=== PATIENT | male | born 1970 | race African-American/Black ===

== ENCOUNTER 2020-04-06 18:01 | Emergency (ER) | payer OTHER, SELFPAY ==
[2020-04-06 18:07] VITALS: BP 134/85; PULSE 87; RESP 18; TEMP 36.4; O2SAT 99
--- NOTE | 2020-04-06 18:10 | ECG_ITS ---
Measurements Intervals [place] Rate: 84 P: 53 LA: 137 QRS: 18 QRSD: 93 T: 61 QT: 310 QTc: 367 Interpretive Statements SINUS RHYTHM ST ELEVATION IN DIFFUSE LEADS, PROBABLY EARLY REPOLARIZATION BASELINE ARTIFACT- I, II, III, AVR, AVL, AVF, V1-V3 BORDERLINE ECG Electronically Signed On 04-07-2020 7:01:06 CDT by Enmanuel Jha D.O.
[2020-04-06 18:26] LABS: Basophils Percent Auto 0.6 % (0.2-1.2); Eosinophils Absolute Auto 0.6 K/mm3 (0-0.3); Eosinophils Percent Auto 11.6 % (0-4.4); Hemoglobin 14.8 g/dL (14.0-18.0); Immature Granulocyte Absolute 0.01 K/mm3 (0.00-0.031); Immature Granulocyte Percent A 0.2 % (0-0.5); Lymphocytes Absolute Auto 1.86 K/mm3 (0.9-3.2); Lymphocytes Percent Auto 34.8 % (18.3-44.2); Mean Corpuscular HGB Conc 32.9 g/dl (32-36); Mean Corpuscular Volume 85.2 fl (80-100); Mean Platelet Volume 9.5 fl (7.4-10.4); Monocytes Absolute Auto 0.5 K/mm3 (0.1-0.6); Monocytes Percent Auto 8.6 % (2.6-8.5); Neutrophils Absolute Auto 2.4 K/mm3 (1.3-6.7); Neutrophils Percent Auto 44.2 % (45.5-73.1); Platelet Count Result 379 k/mm3 (150-375); Red Blood Count 5.28 M/mm3 (4.6-6.20); Red Cell Distribution Width 13.2 % (11.5-14.5); White Blood Count 5.4 K/mm3 (4.5-10.0)
--- NOTE | 2020-04-06 18:35 | PC.NURSE ---
Patient refusing MD Tonie TONY informed.
[2020-04-06 18:37] LABS: Anion Gap 7 mmol/L (8-16); Blood Urea Nitrogen 11 mg/dL (9-20); Calcium 9.2 mg/dL (8.4-10.2); Carbon Dioxide 26 mmol/L (22-30); Chloride 105 mmol/L (98-107); Estimated Glomerular Filt Rate > 60; Glucose 80 mg/dL (75-110); Potassium 4.2 mmol/L (3.4-5.0); Sodium 138 mmol/L (137-145)
--- NOTE | 2020-04-06 18:37 | PCRTNOTE ---
PT REFUSED ABG'S DR GROVES AWARE
[2020-04-06] MEDS: ALBUTEROL SULFATE (*SP) AEROSOL 1 PUFF 6 PUFF INHALATION (18:39)
--- NOTE | 2020-04-06 18:53 | ED.SOB ---
HPI - SOB/Dyspnea General Chief Complaint: Shortness of Breath/Dyspnea Stated Complaint: Difficulty Breathing Time Seen by Provider: 04/06/20 18:22 Source: patient Mode of arrival: ambulatory Limitations: no limitations History of Present Illness HPI Narrative: This patient is a 50 year old male who presents for evaluation of shortness of breath. He states he was exposed to dust at work 1 week ago. He has been having cough and sob since. His sob has continued to worsen. He denies chest pain, fever or chills. He reports he smokes daily. Related Data Allergies Allergy/AdvReac Type Severity Reaction Status Date / Time No Known Allergies Allergy Verified 04/06/20 18:07 Review of Systems Review of Systems: All systems reviewed & are unremarkable except as noted in HPI and below PMFSH Past Medical History Medical History (Updated 04/06/20 @ 20:40 by Doris Schilling MD) Patient denies medical problems Surgical History Surgical History (Updated 04/06/20 @ 20:36 by Doris Schilling MD) Traumatic amputation of legs, bilateral Social History Social History (Updated 04/06/20 @ 20:37 by Doris Schilling MD) Smoking status: Current every day smoker Gender identity (if verbalized by the patient): Male Exam Const: General: alert Orientation/consciousness: patient oriented x3 HENMT: Head: normocephalic and atraumatic Face and sinus: face symmetric Mouth: Yes Normal oral and palatal mucosa present, Yes lip normal and Yes oropharynx normal Throat: posterior oropharynx normal, tonsils normal and uvula midline Eyes: Pupils: Equal, round and reactive pupils present EOM: EOMs intact bilaterally Resp: Effort & Inspection: normal respiratory effort, not labored, no retractions, not tachypneic and no use of accessory muscles Auscultation: wheezes expiratory wheezes and left lower Cardio: Rate: regular rate Rhythm: regular rhythm Heart sounds: Murmur heart sound present Skin: General skin exam: normal color Rashes: no rashes Neuro: General: patient oriented x3 and moves all extremities Psych: Mental Status: mental status grossly normal Affect: normal affect Course Reevaluation(s) Reevaluation #1: PAtient reports his sob resolved after albuterol MDI Date: 04/06/20 Time: 19:16 Reevaluation #2: PAtient refused chest xray. He states he feels fine Date: 04/06/20 Time: 20:38 Vital Signs Vital signs: Vital Signs Temperature 97.5 F L 04/06/20 18:07 Pulse Rate 87 04/06/20 18:07 Respiratory Rate 18 04/06/20 18:07 Blood Pressure 134/85 04/06/20 18:07 Pulse Oximetry 99 04/06/20 18:07 Temperature 98.0 F 04/06/20 20:49 Pulse Rate 77 04/06/20 20:49 Respiratory Rate 18 04/06/20 20:49 Blood Pressure 127/82 04/06/20 20:49 Pulse Oximetry 100 04/06/20 20:49 MDM - SOB/Dyspnea Lab Data Attestation: I reviewed the patient's lab results. Result diagrams: 04/06/20 18:20 04/06/20 18:20 Labs: Lab Results 04/06/20 04/06/20 Range/Units 18:20 18:20 WBC 5.4 (4.5-10.0) K/mm3 RBC 5.28 (4.6-6.20) M/mm3 Hgb 14.8 (14.0-18.0) g/dL Hct 45.0 (42.0-52.0) % MCV 85.2 (80-100) fl MCH 28.0 (26-34) pg MCHC 32.9 (32-36) g/dl RDW 13.2 (11.5-14.5) % Plt Count 379 H (150-375) k/mm3 MPV 9.5 (7.4-10.4) fl Immature Gran % (Auto) 0.2 (0-0.5) % Neut % (Auto) 44.2 L (45.5-73.1) % Lymph % (Auto) 34.8 (18.3-44.2) % [place] % (Auto) 8.6 H (2.6-8.5) % Eos % (Auto) 11.6 H (0-4.4) % Baso % (Auto) 0.6 (0.2-1.2) % Lymph # (Auto) 1.86 (0.9-3.2) K/mm3 [place] # (Auto) 0.5 (0.1-0.6) K/mm3 Eos # (Auto) 0.6 H (0-0.3) K/mm3 Baso # (Auto) 0.0 (0.0-0.1) K/mm3 Abs Immat Gran (auto) 0.01 (0.00-0.031) K/mm3 Absolute Neuts (auto) 2.4 (1.3-6.7) K/mm3 Absolute Nucleated RBC 0.0 (0.0-0.012) K/mm3 Nucleated RBC % 0.0 (0.0-0.2) % Sodium 138 (137-145) mmol/L Potassium 4.2 (3.4-5.0)
[2020-04-06] MEDS: predniSONE 20 MG TABLET 60 MG PO (19:23)
[2020-04-06 20:08] VITALS: BP 134/86; PULSE 87; RESP 18; O2SAT 100
[2020-04-06 20:49] VITALS: BP 127/82; PULSE 77; RESP 18; TEMP 36.7; O2SAT 100
== END 2020-04-06 20:49 | disposition home or self-care (01) ==
PROVIDERS: Emergency Medicine; Emergency Provider General Practice; Referring Provider Family Medicine
DX: J20.9 Acute bronchitis, unspecified (principal); F17.200 Nicotine dependence, unspecified, uncomplicated; Z89.612 Acquired absence of left leg above knee; Z89.611 Acquired absence of right leg above knee; R94.31 Abnormal electrocardiogram [ECG] [EKG]
CPT/HCPCS: 36415; 80048; 85025; 93005; 99284; A9270; J7512

== ENCOUNTER 2024-10-13 14:22 | Emergency (ER) | payer OTHER, SELFPAY ==
[2024-10-13 14:36] VITALS: BP 146/97; PULSE 97; RESP 16; TEMP 36.4; O2SAT 100
--- OUTSIDE RECORDS SUMMARY | 2024-10-13 16:03 | XMS_ITS | CONTINUITY OF CARE DOCUMENT ---
Author Name edvin pardo Address Unknown Organization [facility] Address [address] [place] [address] Phone [phone] Care Team Providers Care Athletic Monitor Name Role Phone QUYNH VICTOR MD Unavailable [phone] KAUSHIK CURRY, GUILLE Unavailable Unavailable INSURANCE PROVIDERS Payer name Policy type / Coverage type [employer] party ID [employer] MEDICAID (2) Medicaid [id number]
--- OUTSIDE RECORDS SUMMARY | 2024-10-13 17:22 | XMS_ITS | CONTINUITY OF CARE DOCUMENT ---
Author Name edvin pardo Address Unknown Organization [facility] Address [address] [place] [address] Phone [phone] Care Team Providers Care Snuff Container Inspector Name Role Phone QUYNH VICTOR MD Unavailable KAUSHIK CURRY, GUILLE Unavailable Unavailable INSURANCE PROVIDERS Payer name Policy type / Coverage type [employer]anga red republican ID RON[employer]IE MEDICAID (2) Medicaid [id number]
--- NOTE | 2024-10-13 17:37 | ED_ITS ---
HPI - Back Pain/Injury General Chief Complaint: Back Pain/Injury Stated Complaint: back pain Time Seen by Provider: 10/13/24 17:10 Source: patient Mode of arrival: wheelchair Limitations: no limitations History of Present Illness HPI Narrative: This is a 54 year old male that presents to the ER for right sided mid back pain. Ongoing over the last 4 days. Yesterday he noted a rash in the area. He took Excedrin with some relief. Related Data Allergies Allergy/AdvReac Type Severity Reaction Status Date / Time No Known Allergies Allergy Verified 10/13/24 16:45 Review of Systems Review of Systems: CONSTITUTIONAL: Denies fever GASTROINTESTINAL: Denies abdominal pain, nausea, vomiting GENITOURINARY: Denies dysuria SKIN: Reports rash MUSCULOSKELETAL: Reports back pain NEUROLOGIC: Denies numbness All systems reviewed & are unremarkable except as noted in HPI and below PMFSH Past Medical History Medical History (Updated 10/13/24 @ 17:38 by Sheila Mei PA-C) Patient denies medical problems Surgical History Surgical History (Updated 04/06/20 @ 20:36 by Doris Schilling MD) Traumatic amputation of legs, bilateral Social History Social History (Updated 04/06/20 @ 20:37 by Doris Schilling MD) Smoking status: Current every day smoker Gender identity (if verbalized by the patient): Male Exam Narrative: GENERAL: Well-appearing, well-nourished, and in no acute distress. HEAD: Normocephalic, atraumatic. EYES: EOMI. CHEST: Clear to auscultation. No respiratory distress. No wheezes rales or rhonchi HEART: Regular rate and rhythm. No murmur heard. Normal peripheral pulses. BACK: No midline spinal tenderness. Dermatomal rash present in the right mid back EXTREMITIES: Normal range of motion. No edema. Bilateral [id number] amputation SKIN: Warm, dry NEURO: No focal deficits. Alert and oriented x3. PSYCH: Normal mood and affect Course Vital Signs Vital signs: Vital Signs Temperature 97.5 F L 10/13/24 14:36 Pulse Rate 97 10/13/24 14:36 Respiratory Rate 16 10/13/24 14:36 Blood Pressure 146/97 H 10/13/24 14:36 Pulse Oximetry 100 10/13/24 14:36 Temperature 97.5 F L 10/13/24 14:36 Pulse Rate 97 10/13/24 14:36 Respiratory Rate 16 10/13/24 14:36 Blood Pressure 146/97 H 10/13/24 14:36 Pulse Oximetry 100 10/13/24 14:36 MDM - Back Pain/Injury MDM Narrative Medical decision making narrative: Patient presents to the emergency department for right sided back pain, with associated rash noted yesterday. Exam consistent shingles. Instructed to follow up with primary provider. He was given warnings to return to the ER Differential Diagnosis Differential diagnosis: Likely lumbar radiculopathy, sciatica, strain of lumbar region, renal colic, thoracic back pain and other (Herpes zoster) Critical Care Time Critical Care Time Critical Care Time: No Discharge Plan Discharge Clinical Impression: Herpes zoster Qualifiers: Herpes zoster complications: without complications Qualified Code(s): B02.9 - Zoster without complications Patient Disposition: Home, Self-Care Condition: Stable Instructions: Shingles (ED) Additional Instructions: Return to the emergency department if you experience fever, chest pain, shortness of breath, abdominal pain with nausea and vomiting, weakness, numbness, or any other symptoms that are concerning to you. [id number] pain medication as needed. Prescribed pain medication as needed. Take steroid taper and Valacyclovir as prescribed Follow up with primary care doctor Patient Language: Croatian Prescriptions: New valacyclovir 1 gram tablet 1,000 mg PO Q8H 10 Days Qty: 30 0RF prednisone 10 mg tablet 10 mg PO DAILY Qty: 45 0RF Rx Instructions: 5 tabs daily for 3 days, 4 tabs daily for 3 days, 3 tabs daily for 3 days, 2 tabs daily for 3 days, 1 tab daily for 3 days hydrocodone-acetaminophen 5-325 mg tablet 1 tablet PO Q6H PRN (Reason: pain) Qty: 20 0RF No Action albuterol sulfate 90 mcg/actuation HFA aerosol inhaler 2 puff INHALATION QID PRN (Reason: shortness of breath or wheezing) Qty: 6.7 0RF prednisone 50 mg tablet 50 mg PO DAILY Qty: 5 0RF azithromycin 250 mg tablet See Rx Instructions .ROUTE .COMPLEX Qty: 6 0RF Rx Instructions: take 500 mg today (day 1), then 250 mg for 4 days (days 2-5) Follow-up/Referrals: UNKNOWN,DOCTOR [Primary Care Provider] -
[2024-10-13] MEDS: KETOROLAC 30 MG/ML VIAL (*BKC) IM (17:54)
[2024-10-13] MEDS: ACETAMINOPHEN 325 MG TABLET 650 MG PO (17:54)
[2024-10-13] MEDS: HYDROcodone/acetaminophen (*CRX) 5-325 MG TABLET 1 TAB PO (17:55)
== END 2024-10-13 18:06 | disposition home or self-care (01) ==
PROVIDERS: Emergency Provider Physician Assistant
DX: B02.9 Zoster without complications (principal); F17.200 Nicotine dependence, unspecified, uncomplicated; Z89.612 Acquired absence of left leg above knee; Z89.611 Acquired absence of right leg above knee
CPT/HCPCS: 96372; 99283; A9270; J1885